=== PATIENT | female | born 1950 | race Caucasian/White ===

== ENCOUNTER → 2021-08-05 | Outpatient (CLI) | payer MEDICARE, OTHER ==
--- NOTE | 2021-08-07 17:11 | CARD ---
MR#: [id number] Date of Study: 08/05/2021 Ordering Physician: ZACHARY DENT, Referring Physician: Rafaela RAMIREZ: Santino Aguilar [facility] APPROVED REPORT EXAM: Two-dimensional and M-mode echocardiogram with Doppler and color Doppler. Other Information Quality : AverageHR: 75bpm Rhythm : NSR INDICATION Edema RISK FACTORS Obesity 2D DIMENSIONS Left Atrium(2D)3.3 (1.6-4.0cm)IVSd0.9 (0.7-1.1cm) Aortic Root(2D)2.9 (2.0-3.7cm)LVDd4.4 (3.9-5.9cm) LVOT Diameter2.1 (1.8-2.4cm)PWd0.8 (0.7-1.1cm) LA Vttflc39 (18-58mL)LVDs2.9 (2.5-4.0cm) FS (%) 34.2 %SV56.6 ml Aortic Valve AoV Peak Christiano.116.1cm/sAoV VTI20.3cm AO Peak GR.5.4mmHgLVOT Peak Christiano.78.0cm/s LVOT VTI 17.57cmAO Mean GR.3mmHg HAMILTON (VMAX)1.10ba5ZKA (VTI)3.06cm2 Mitral Valve MV E Zhviwmdh25.4cm/sMV DECEL RRPG088ky MV A Ofxsvyzb57.0cm/sMV E Mean Gr.1mmHg MV FQN41umN/A Ratio0.8 MVA (PHT)3.50cm2 TDI E/Lateral E'6.6E/Medial E'10.2 Pulmonary Valve PV Peak Yjokkxhk482.1cm/sPV Peak Grad.5mmHg Tricuspid Valve TR P. Kxlleoor915ol/sTR Peak Gr.25mmHg Pulmonary Vein S1 Gfuznvto84.2cm/sD2 Dsngjubu55.3cm/s LEFT VENTRICLE The left ventricle is normal size. There is normal left ventricular wall thickness. The left ventricu lar systolic function is normal and the ejection fraction is within normal range. LV ejection fractio n is 55 to 60%. There is normal LV segmental wall motion. No left ventricle thrombus noted on this st udy. There is no ventricular septal defect visualized. There is no left ventricular aneurysm. There i s no mass noted in the left ventricle. RIGHT VENTRICLE The right ventricle is normal size. There is normal right ventricular wall thickness. The right ventr icular systolic function is normal. ATRIA The left atrium size is normal. The right atrium size is normal. The interatrial septum is intact wit h no evidence for an atrial septal defect or patent foramen ovale as noted on 2-D or Doppler imaging. AORTIC VALVE The aortic valve is normal in structure and function. Doppler and Color Flow revealed no significant aortic regurgitation. There is no significant aortic valvular stenosis. There is no aortic valvular v egetation. MITRAL VALVE The mitral valve is normal in structure and function. There is no evidence of mitral valve prolapse. There is no mitral valve stenosis. Doppler and Color-flow revealed trace mitral regurgitation. TRICUSPID VALVE The tricuspid valve is normal in structure and function. Doppler and Color Flow revealed trace tricus pid regurgitation. The PA pressure was estimated at 34 mmHg. There is no tricuspid valve prolapse or vegetation. There is no tricuspid valve stenosis. PULMONIC VALVE The pulmonary valve is normal in structure and function. Doppler and Color Flow revealed no pulmonic valvular regurgitation. There is no pulmonic valvular stenosis. GREAT VESSELS The aortic root is normal in size. The ascending aorta is normal in size. The pulmonary artery is nor mal. The IVC is normal in size and collapses >50% with inspiration. PERICARDIAL EFFUSION There is no pleural effusion. There is no evidence of significant pericardial effusion. Critical Notification Critical Value: No <Conclusion> The left ventricle is normal size. The left ventricular systolic function is normal and the ejection fraction is within normal range. LV ejection fraction is 55 to 60%. Doppler and Color Flow revealed no significant aortic regurgitation. There is no significant aortic valvular stenosis. Doppler and Color-flow revealed trace mitral regurgitation. Doppler and Color Flow revealed trace tricuspid regurgitation. The PA pressure was estimated at 34 mmHg. Signed by : Josh Dunbar MD Electronically Approved : 08/07/2021 17:10:35
== END ==
LOC: ECHO 09:47
PROVIDERS: ATTEND Internal Medicine Cardiovascular Disease
DX: I87.2 Venous insufficiency (chronic) (peripheral) (principal); I82.409 Acute embolism and thrombosis of unspecified deep veins of unspecified lower extremity
CPT/HCPCS: 93306; 93970; C8929

== ENCOUNTER → 2021-10-12 | Outpatient (CLI) | payer MEDICARE ==
--- NOTE | 2021-10-12 12:37 | RAD ---
MR#: [id number] Date of Study: 10/12/2021 Ordering Physician: ZACHARY CANELA, Referring Physician: ZACHARY CANELA, Tech: Kory Maldonado MBA, RDMS, RVT, RDCS, RTR APPROVED REPORT Bilateral Lower Extremity Venous Study for DVT Patient Location: OUT-PATIENT Indications s/p b/l gsv venaseal Vein Imaging (Right) CFV (R): Compressible SFJ (R): Compressible FEM (R): Compressible POP (R): Compressible DFV (R): Compressible PTV (R): Spontaneous GSV (R): Absent Flow Peroneals (R): Spontaneous Vein Imaging (Left) CFV (L): Compressible SFJ (L): Compressible FEM (L): Compressible POP (L): Compressible DFV (L): Compressible PTV (L): Spontaneous GSV (L): Absent Flow Peroneals (L): Spontaneous Doppler Evaluation (Right) CFV (R): Spontaneous POP (R):Spontaneous Doppler Evaluation (Left) CFV (L):Spontaneous POP (L):Spontaneous Findings Grayscale images of bilateral saphenofemoral junctions were grossly unremarkable without any evidence of thrombus. The common femoral, superficial femoral and popliteal veins bilaterally are fully comp ressible without any evidence of thrombus. Spectral waveform and color duplex analysis was performed . The bilateral greater saphenous veins are successfully ablated. There is spontaneous flow in the calf veins. Critical Notification Critical Value: No <Conclusion> Bilateral lower extremity venous duplex scan showed successfully ablated greater saphenous veins bila terally without any evidence of deep venous thrombosis. Signed by : Zachary Canela, Electronically Approved : 10/12/2021 12:36:49
== END ==
LOC: US 10:37
PROVIDERS: ATTEND Internal Medicine Cardiovascular Disease
DX: I87.2 Venous insufficiency (chronic) (peripheral) (principal)
CPT/HCPCS: 93970